=== PATIENT | male | born 1960 | race Caucasian/White ===

== ENCOUNTER → 2017-07-25 | Outpatient (CLI) | payer OTHER ==
[~2017-07-25] MED LIST: ACET-1256 PO; CFT250 PO; CMD25 PO; DIPH1TAB PO; FLNIN NAE; MEPE1TAB PO; MULT-506 PO; OXYC-106 PO; OXYC-57 PO; OXYC1TAB3 PO; OXYM0.056 NAE; PRAV20TA PO
--- NOTE | 2017-07-25 10:56 | DIAGNOSTIC IMAGING REPORT ---
SINUSES WITH BRAIN LAB HISTORY: 56 years-old Male CHRONIC SINUSITIS, POLYP OF SINUS COMPARISON: None available TECHNIQUE: Multiple axial CT images of the paranasal sinuses were obtained without IV contrast. A dose lowering technique was used consistent with the principals of MARANDA. FINDINGS: There appears to have been prior bilateral maxillary antrostomies. Mild mucosal thickening seen involving the maxillary sinuses bilaterally in a generally symmetric distribution. There is under pneumatization of the right frontal sinus with mild mucosal thickening seen involving the inferior frontal sinuses bilaterally. Moderate mucosal disease involves the ethmoid air cells with minimal sphenoid sinus disease noted. Mild mucosal thickening involves the bilateral sphenoethmoidal and frontoethmoidal recesses. Mild right greater than left mucosal thickening involves the bilateral maxillary ostiomeatal units which are patent. No Han cells are identified. No large chauncey bullosa. There is no significant spurring of the nasal septum. No polyp of the nasopharynx identified. Mastoid air cells and middle ear cavities are clear. The imaged intracranial structures demonstrate no acute abnormality. Senescent calcifications involve the lentiform nuclei. There is mild cerebral atrophy. Orbits are symmetric. Soft tissues are within normal limits. Minimal secretions are noted within the nasal turbinates. IMPRESSION: 1. Moderate ethmoid with mild maxillary, frontal and sphenoid sinus disease is noted with mild mucosal thickening involving the bilateral sphenoethmoidal and frontoethmoidal recesses and bilateral maxillary ostiomeatal units without obstruction. 2. No definite sinonasal polyp identified. The above report was generated using voice recognition software. It may contain grammatical, syntax or spelling errors. Electronically signed by: Al Hickman M.D. 07/25/2017 10:54 AM Dictated Date/Time: 07/25/2017 10:48 AM
== END | disposition home or self-care (01) ==
LOC: C.CTS 09:58
PROVIDERS: ATTEND Otolaryngology
DX: J32.9 Chronic sinusitis, unspecified (principal); J33.8 Other polyp of sinus

== ENCOUNTER 2017-08-03 09:12 | Day surgery (SDC) | payer OTHER ==
[2017-07-25 08:37] VITALS: BMI 37.0
--- NOTE | 2017-07-25 09:12 | PAT Medication Instructions ---
Service Date Jul 25, 2017. Current Home Medication List Acetaminophen (Tylenol), 1,000 MG PO PRN Diphenhydramine Hcl (Benadryl Allergy), 50 MG PO Q4H PRN for RN Oxycodone Ir (Roxicodone Ir), 10 MG PO Q4H PRN for Severe Pain Oxymetazoline Hcl (Afrin), 4 SPRAYS ARSENIO PRN Pravastatin (Pravachol ), 40 MG PO QPM Medication Instructions For Your Scheduled Surgery - Hold the following medications the morning of surgery: Diphenhydramine Hcl (Benadryl Allergy), 50 MG PO Q4H PRN Oxymetazoline Hcl (Afrin), 4 SPRAYS ARSENIO PRN (bring to hospital) - Take the following medications the morning of surgery with a sip of water OTHERWISE NOTHING TO EAT OR DRINK AFTER MIDNIGHT: Oxycodone Ir (Roxicodone Ir), 10 MG PO Q4H PRN for Severe Pain (may take if needed up to 4 hours prior to surgery) Acetaminophen (Tylenol), 1,000 MG PO PRN (may take if needed up to 4 hours prior to surgery) - Take the following medications as scheduled the night before surgery: Pravastatin (Pravachol ), 40 MG PO QPM Oxycodone Ir (Roxicodone Ir), 10 MG PO Q4H PRN for Severe Pain Diphenhydramine Hcl (Benadryl Allergy), 50 MG PO Q4H PRN Acetaminophen (Tylenol), 1,000 MG PO PRN If you have any questions please call us at [phone] or [phone] or [phone]
[2017-07-25 10:17] LABS: BASO % 0.4 %; BASO ABS # 0.04 K/uL (0-0.2); COMPLETE YES; EOS % 9.9 %; IG% 0.8 %; LYMPH % 21.4 %; LYMPH ABS # 2.33 K/uL (1.2-3.4); MEAN CELL VOLUME 89.8 fL (80-100); MEAN CORPUSCULAR HEMOGLOBIN 29.4 pg (25-34); MEAN CORPUSCULAR HGB CONC 32.8 g/dl (32-36); MEAN PLATELET VOLUME 11.7 fL (7.4-10.4); MONO % 8.3 %; NEUT % 59.2 %; PLATELET COUNT 167 K/uL (130-400); RED BLOOD COUNT 4.79 M/uL (4.7-6.1); WHITE BLOOD COUNT 10.91 K/uL (4.8-10.8)
[2017-07-25 10:27] LABS: BUN/CREATININE RATIO 29.4 (10-20); CALCIUM 9.6 mg/dl (8.5-10.1); CREATININE 0.78 mg/dl (0.60-1.40); POTASSIUM 4.4 mmol/L (3.5-5.1)
--- NOTE | 2017-08-02 15:15 | History and Physical ---
History & Physical Date Aug 02, 2017. Chief Complaint Chronic sinusitis and polyps History of Present Illness The patient is a 56 year old male with complaints of chronic sinusitis and polyposis and obstructive sleep apnea Additional History Hepatic Disease: No Endocrine Disorder: No Kidney Disease: No Hypertension: Yes Heart Disease: Yes Bleeding Tendencies: No Infectious Diseases: No Allergies Coded Allergies: Azithromycin (Unverified Allergy, Unknown, LOSS OF BALANCE DIZZINESS, 07/25) Cashew (Unverified Allergy, Unknown, HIVES AND HANDS SWELLING, 07/25/17) Citalopram (Unverified Allergy, Unknown, EXTREME SLEEPINESS, 07/25/17) Clindamycin (Unverified Allergy, Unknown, HIVES, 07/25/17) Meperidine (Unverified Allergy, Unknown, HIVES, 07/25/17) Penicillins (Verified Allergy, Unknown, HIVES, 07/25/17) Tramadol (Verified Adverse Reaction, Unknown, SEVERE CONSTIPATION, 07/25/17 ) Home Medications Scheduled Acetaminophen (Tylenol), 1,000 MG PO PRN Oxymetazoline Hcl (Afrin), 4 SPRAYS ARSENIO PRN Pravastatin (Pravachol ), 40 MG PO QPM Scheduled PRN Diphenhydramine Hcl (Benadryl Allergy), 50 MG PO Q4H PRN for RN Oxycodone Ir (Roxicodone Ir), 10 MG PO Q4H PRN for Severe Pain Physical Examination Skin: warm/dry, no rash Eyes: normal inspection, EOMI, sclerae normal ENT: normal ENT inspection, pharynx normal Head: normocephalic, atraumatic Neck: supple, no adenopathy, trachea midline Respiratory/Chest: lungs clear, normal breath sounds, no respiratory distress Cardiovascular: regular rate, rhythm, no edema, no murmur Abdomen / GI: normal bowel sounds, non tender Back: normal inspection Extremities: normal inspection, normal range of motion Neurologic/Psych: no motor/sensory deficits, alert, normal reflexes, oriented x 3 Diagnosis Chronic sinusitis and polyposis, septal deviation Plan of Treatment Endoscopic sinus surgery with septoplasty
[~2017-08-03] VITALS: Ht 172.7 cm; Wt 110.8 kg
[~2017-08-03 09:12] MED LIST changes: +ATROPINE SULFATE 0.1 MG/ML 5ML SYR IV PRN; +CEFAZOLIN 2000 MG/60 ML D5W IV SCH; -CFT250 PO; -CMD25 PO; +EpHEDrine SULFATE INJ 50 MG/ML AMP IV PRN; -FLNIN NAE; +LACTATED RINGER'S 1000ML 1,000 ML IV SCH; -MEPE1TAB PO; -MULT-506 PO; +ONDANSETRON INJ 2 MG/ML 2 ML VIAL IV PRN; -OXYC-106 PO; -OXYC-57 PO; +SCOPOLAMINE 1.5 MG TDSY TD SCH
[2017-08-03 09:47] VITALS: BP 132/83; PULSE 60; TEMP 36.4; O2SAT 97; Ht 172.7 cm; Wt 110.8 kg
[2017-08-03] MEDS ORDERED: OXYMETAZOLINE HCL 0.05% NA SPR 15 ML BTL ONE (11:04)
[2017-08-03] MEDS ORDERED: BACITRACIN OINT 15 GM TUBE ONE (11:11)
[2017-08-03] MEDS ORDERED: LIDOCAINE 4% INH SOLN 4 ML BTL ONE (11:11)
[2017-08-03] MEDS ORDERED: TRIAMCINOLONE ACET 40 MG/ML VIAL ONE (11:11)
[2017-08-03] MEDS ORDERED: GELATIN SPONGE 12-7MM ONE (11:11)
[2017-08-03] MEDS ORDERED: LIDO 2%/EPINEPHRINE 1:100000 20 ML VIAL INFIL ONE (11:11)
[2017-08-03] MEDS ORDERED: EpINEphrine INJ 1MG/ML AMP 1 MG/ML AMP ONE ×2 (11:12→13:08)
[2017-08-03] MEDS ORDERED: HYDROmorphone INJ 2 MG/ML SYR/VIAL ONE (11:19)
--- NOTE | 2017-08-03 11:21 | History & Physical Bridge Note ---
H&P Re-Evaluation Bridge Note: I have examined the patient, reviewed the History & Physical and in the interval since the performance of the History & Physical I have noted the following changes of clinical significance: No changes noted
[2017-08-03] MEDS ORDERED: SUCCINYLCHOLINE 100MG/5ML SYR IV ONE (12:27)
[2017-08-03] MEDS ORDERED: PROPOFOL IV EMULSION 10 MG/ML 20 ML VIAL IV ONE (12:27)
[2017-08-03] MEDS ORDERED: DEXAMETHASONE SOD INJ 4 MG/ML VIAL ONE (12:27)
[2017-08-03] MEDS ORDERED: FENTANYL CITRATE INJ 50 MCG/1 ML 2 ML VIAL ONE (12:27)
[2017-08-03] MEDS ORDERED: LIDOCAINE HCL 2% 2 ML VIAL (20MG/ML) ONE (12:27)
[2017-08-03] MEDS ORDERED: MIDAZOLAM HCL 1 MG/ML 2ML VIAL ONE ×2 (12:27→14:18)
[2017-08-03] MEDS ORDERED: ONDANSETRON INJ 2 MG/ML 2 ML VIAL ONE ×2 (12:27→14:52)
[2017-08-03] MEDS ORDERED: ARTIFICIAL TEARS OP OINT 3.5 GM TUBE ONE (13:08)
[2017-08-03] MEDS ORDERED: SODIUM CHLORIDE 0.9% 1000ML 1,000 ML IV SCH (14:22)
[2017-08-03] MEDS ORDERED: ONDANSETRON INJ 2 MG/ML 2 ML VIAL IV PRN (14:30)
[2017-08-03] MEDS ORDERED: OXYCODONE/ACETAMINOPHEN 5-325 TAB PO PRN ×2 (14:30)
--- NOTE | 2017-08-03 14:33 | [facility] Operative Report ---
Operative Report Operative Date Aug 03, 2017. Pre-Operative Diagnosis Chronic sinusitis and polyps Post-Operative Diagnosis Chronic sinusitis and polyps Procedure(s) Performed Endoscopic Sinus Surgery of Right and Left Frontal, Right and Left Sphenoid, Right and Left Ethmoidectomies, Right and Left Maxillary with computer Guidance , and Septoplasty Surgeon Dr Ferguson Rodding Anode Worker Surgeon(s) none Estimated Blood Loss 150cc Findings Acutely angulated nasal septum with obstruction of both ostiomeatal complexes, polyposis obstructing nasal frontal ducts and maxillary sinuses and sphenoid ostia Specimens None as Per Surgeon Anesthesia Gen. endotracheal Complication(s) None Disposition Recovery Room / PACU Indications 56-year-old gentleman with significant history of nasal obstruction aggravating his sleep apnea found to have polyposis and severe septal deviation confirmed on CT scan Description of Procedure He was brought to the operating room placed in the supine position prepped with Betadine paint and draped in the usual sterile manner. The Border Stylo device was calibrated and used during the entire procedure. The right sphenoid was cannulated with the guidewire with [employer] computer guidance and dilated using the 6 mm balloon as was the left sphenoid sinus. The right nasal frontal duct was cannulated with the guidewire and dilated using the 6 mm balloon. The right frontal sinus was much smaller than the left frontal sinus. The left frontal sinus was dilated with the 6 mm balloon with [facility] computer guidance. The guidewire was left in place as a marker as the catheter was withdrawn frontal sinusotomy was performed by coupling the shaver with the [employer] device and then removing the adhesions from the middle turbinate remnant to the lateral wall and then opening up the anterior wall and then the posterior wall of the Agger nasi cell and thus widely opening the nasal frontal duct, and then the residual polyps inside the ethmoid cavity were removed using the shaver couple with the [employer] device. Maxillary sinus was also opened by removing the adhesions and polyps opening up the previous lesion made large antrostomy opening. The right frontal sinusotomy total ethmoidectomy maxillary antrostomy and sphenoidotomy were performed in a similar manner, however this had to be performed after the septoplasty portion due to a acutely angulated nasal septum with posterior deviation to the right obstructing the ostiomeatal complex. The septum was injected with 2% Xylocaine with 1-100,000 strength epinephrine. The left hemitransfixion incision was made and mucoperichondrium was elevated off the left side of the septum. Cartilage was inferiorly from the vomer maxillary crest and posteriorly from the perpendicular plate of the ethmoid which was spent to the right superiorly and to the left inferiorly. Bilateral posterior tunnels were elevated to isolate the large bony and cartilaginous spur which were removed using the Blanca dissector Cole Fontenot rongeurs and Troy forceps. A strip of cartilage was removed from the inferiorly to allow the septum to return to the midline. The quadrangular cartilage was still acutely angulated, therefore bilateral anterior tunnels were made and the cartilage carving technique was used to straighten the quadrangular cartilage. The septum was closed using a continuous mattress suture of 40 plain gut and also interrupted 4-0 chromic sutures on the left side at the hemitransfixion incision. At this point the right frontal sinusotomy total ethmoidectomy sphenoidotomy and maxillary sinus antrostomy was completed removing multiple polyps which were blocking the nasal frontal duct, removing adhesions which were blocking the ostiomeatal complex and the maxillary sinus, and removing polypoid tissue from the anterior face of the sphenoid at the sphenoid ostia which was previously dilated. Propel stents were placed with a mini stent in the left nasal frontal duct and to regular stents in each ethmoid cavity. Anterior packing of Gelfoam was placed. The patient tolerated the procedure well and was taken to the recovery area in satisfactory condition. I attest to the content of the Intraoperative Record and any orders documented therein. Any exceptions are noted below.
[2017-08-03] MEDS ORDERED: OXYC-57 PO (14:34)
--- NOTE | 2017-08-03 14:35 | Discharge Instructions-SurgCtr ---
Discharge Instructions Date of Service Aug 03, 2017. Visit Reason for Visit: Chronic Sinusitis, Deviated Septum Discharge Discharge Diagnosis / Problem: same Discharge Goals Goal(s): Improve function Activity Recommendations Activity Limitations: per Instructions/Follow-up section Anesthesia . Post Anesthesia Instructions: If you have had General Anesthesia or IV Sedation: * Do not drive today. * Resume driving when surgeon permits. * Do not make important decisions or sign legal documents today. * Call surgeon for: 1. Temperature elevations greater than 101 degrees F. 2. Uncontrollable pain. 3. Excessive bleeding. 4. Persistent nausea and vomiting. 5. Medication intolerance (nausea, vomiting or rash). * For nausea and vomiting use only clear liquids such as: tea, soda, bouillon until nausea subsides, then gradually increase diet as tolerated. * If you have any concerns or questions, call your surgeon's office. If physician is unavailable and it is an emergency, call 911 or go to the nearest emergency room. . Instructions / Follow-Up Instructions / Follow-Up ACTIVITY RECOMMENDATIONS: * Being up and around is good, but no strenuous activity, heavy lifting or physical exertion for one week. * Keep your head elevated 30 degrees when lying down or sleeping. * Do not blow your nose for 48 hours, sniff back instead. * Avoid hot showers. OVER THE COUNTER MEDICATIONS: * You may use Tylenol * Avoid aspirin or aspirin containing products, e.g. as they may increase bleeding. SPECIAL CARE INSTRUCTIONS: * Expect to have bloody drainage from your nose and/or down your throat for one to three days. Change drip pad as needed. * Begin irrigating your nose with saline solution today, at least six to ten times per day and sniff back to help remove old clots or crust. * You may experience nasal and facial congestion, pain and pressure, this is normal. * Please call with any significant and/or progressive pain, redness, swelling around the eyes, visual changes, fever of 101.5 degrees F, active bleeding or any problems or concerns. * If active bleeding occurs, spray the nose three times at one minute intervals with Afrin spray and call or cell phone: . If unable to reach the doctor, go to the nearest Emergency Department. Special Diet: * Avoid extremely hot fluids. FOLLOW UP VISIT: Follow-up Visit with Dr. Ferguson If not already scheduled, please call to schedule. Diet Recommendations Home Diet: no limitations Procedures Procedures Performed: Endoscopic Sinus Surgery of Right and Left Frontal, Right and Left Sphenoid, Right and Left Ethmoidectomies, Right and Left Maxillary with computer Guidance , and Septoplasty Pending Studies Studies pending at discharge: no Medical Emergencies . Who to Call and When: Medical Emergencies: If at any time you feel your situation is an emergency, please call 911 immediately. . Non-Emergent Contact Non-Emergency issues call your: Primary Care Provider . . "Provider Documentation" section prepared by Denise Ferguson. . [place] Drug Monitoring Program Search Results: no issues identified
--- NOTE | 2017-08-03 14:52 | Anesthesiology Progress Note ---
Anesthesia Post Op Note Date & Time Aug 03, 2017 at 14:52 Vital Signs Pain Intensity: 0 Vital Signs Past 12 Hours Date Time Temp Pulse Resp B/P (MAP) Pulse Ox O2 Delivery O2 Flow Rate FiO2 08/03/17 14:45 70 14 141/87 96 Free Flow/Blowby 10 08/03/17 14:35 65 12 131/87 98 Free Flow/Blowby 15 08/03/17 14:25 36.4 75 16 145/87 95 Free Flow/Blowby 15 08/03/17 09:47 36.4 60 18 132/83 (99) 97 Room Air Notes Mental Status: alert / awake / arousable, participated in evaluation Pt Amnestic to Procedure: Yes Nausea / Vomiting: adequately controlled Pain: adequately controlled Airway Patency, RR, SpO2: stable & adequate BP & HR: stable & adequate Hydration State: stable & adequate Anesthetic Complications: no major complications apparent
[2017-08-03 15:25] VITALS: BP 119/85; PULSE 65; TEMP 37.3; O2SAT 95
[2017-08-03 15:55] VITALS: BP 129/83; PULSE 76; TEMP 37.3; O2SAT 95
[2017-08-03] MEDS ORDERED: CHECK SCOPOLAMINE PATCH PLACEMENT SCH (16:00)
[2017-08-03 16:25] VITALS: BP 132/93; PULSE 81; TEMP 37.3; O2SAT 93
== END 2017-08-03 16:55 | disposition home or self-care (01) ==
LOC: C.ACU 09:12
PROVIDERS: ATTEND Otolaryngology
DX: J32.9 Chronic sinusitis, unspecified (principal); J33.8 Other polyp of sinus; G47.33 Obstructive sleep apnea (adult) (pediatric); J34.2 Deviated nasal septum